=== PATIENT | male | born 1960 | race Caucasian/White ===

== ENCOUNTER 2020-03-22 10:17 | Emergency (ER) | payer SELFPAY ==
[2020-03-22 10:17] VITALS: BP 188/94; PULSE 74; RESP 16; TEMP 36.3; O2SAT 97; BMI 29.2
[2020-03-22 10:31] LABS: Bedside Glucose 312 mg/dL (70-110)
--- NOTE | 2020-03-22 10:32 | ED.DCSUM_ITS ---
History of Present Illness Informant: Patient Onset: Days - 4 days Context: Gradual Onset Timing: Continuous Quality: Feels like blood sugar high Current Severity: Severe Maximum Severity: Severe Worsened by: Nothing Relieved by: Nothing Associated Symptoms: Denies Narrative: 59-year-old male visiting from [place] ran out of his Levemir and he did not bring his glucose meter with him to check his blood sugar. He is not having any symptoms but he is worried his blood sugar is high. No chest pain or shortness of breath he is not lightheaded or dizzy no nausea or vomiting no blurred or double vision no loss of vision no weakness or paresthesias or difficulties with speech or ambulation Prior similar symptoms: No Recent Illness/Hospitalization: No <Doug Avendano - Last Filed: 03/22/20 10:32> <Ramy Girard - Last Filed: 03/22/20 10:41> Chief Complaint: Hyperglycemia Past Medical History Prior records reviewed: Yes Past Medical History: - - Type 2 diabetes mellitus Surgical History: noncontributory Lives: With Family Smoking Status: Unknown if ever smoked <Doug Avendano - Last Filed: 03/22/20 10:32> <Ramy Girard - Last Filed: 03/22/20 10:41> - Allergies and Home Meds Allergies/Adverse Reactions: Allergies No Known Allergies Allergy (Verified 03/22/20 10:19) Review of Systems All systems negative except as indicated General: Denies: Chills, Fever, Sweats Eyes: Denies: Visual changes - bilaterally, Diplopia ENT: Denies: Rhinorrhea, Sore throat Cardiovascular: Denies: Chest pain, Palpitations Respiratory: Denies: Dyspnea, Cough, Dyspnea on exertion Gastrointestinal: Denies: Abdominal pain, Nausea, Vomiting, Diarrhea, Melena, Hematochezia Genitourinary: Denies: Dysuria, Hematuria, Frequency Musculoskeletal: Denies: Back pain, Extremity Pain Skin: Denies: Rash, Wounds Neurological: Denies: Headache, Weakness, Numbness <Doug Avendano - Last Filed: 03/22/20 10:32> Physical Exam Vital Signs/Narrative: Vital Signs Temp Pulse Resp BP Pulse Ox 03/22/20 10:17 97.4 F L 74 16 188/94 H 97 General: Well nourished, Well developed, No Acute Distress Head: Normocephalic, Atraumatic Eyes: Perrl, EOMI ENT: Moist mucous membranes, No rhinorrhea Neck: Supple, Nontender Cardiovascular: Regular rate, Regular rhythm, No murmurs Respiratory: No distress, CTA bilaterally, Chest nontender Abdomen: Soft, Nontender, Nondistended, Normal bowel sounds Back: Nontender, Normal Inspection Extremities: Nontender, No edema Skin: Normal color, No rash Neurological: Alert, Oriented x3, Cranial nerves II-XII grossly intact, Normal Strength, Normal Sensation Psychological: Normal affect, Normal Mood <Doug Avendano - Last Filed: 03/22/20 10:32> Vital Signs/Narrative: Vital Signs Temp Pulse Resp BP Pulse Ox 03/22/20 10:17 97.4 F L 74 16 188/94 H 97 <Ramy Girard - Last Filed: 03/22/20 10:41> Diagnostic/Tx/Re-eval - Medical Decision Making Blood sugar was checked and it is 312. Patient visiting from [place]. Vital signs stable overall the patient is well-appearing. He is on Levemir. He does not know what dose he is on. We will start him back on a conservative dose based off his weight at 19 units once a day and he will follow back up with his doctor in [place] <Doug Avendano - Last Filed: 03/22/20 10:32> - Medical Decision Making I performed a history and physical examination of the patient and discussed management plan with the physician admissions assistant. I reviewed the physician admissions assistant's note and agree with the documented findings and plan of care. Patient is from [place] currently visiting. He did not bring his glucometer and states he is feel like his blood sugar is high. He is out of his insulin. The pharmacy that he typically would use in [place] he has not filled his insulin there as he was living in [place] for his last prescription. The doctor that he sees in [place] their office is closed. Ramy Girard DO, <Ramy Girard - Last Filed: 03/22/20 10:41> ED Disposition <Doug Avendano - Last Filed: 03/22/20 10:32> <Ramy Girard - Last Filed: 03/22/20 10:41> - Plan for ED Patient: Disposition: Home or Assisted Living Diagnosis: Hyperglycemia Instructions: ED Diabetic Hyperglycemia Prescriptions: Insulin Detemir [Levemir ([facility])] 20 units SUBCUT QHS #1 flexpen Prescription Printed
[2020-03-22 10:47] VITALS: BP 188/94; PULSE 74; RESP 18; O2SAT 97
== END 2020-03-22 10:58 | disposition home or self-care (01) ==
LOC: ED 10:53
PROVIDERS: Emergency Provider Physician Assistant Medical
DX: E11.65 Type 2 diabetes mellitus with hyperglycemia (principal)
CPT/HCPCS: 82962; 99282